=== PATIENT | female | born 1970 | race Caucasian/White ===

== ENCOUNTER → 2017-06-22 | Day surgery (SDC) | payer OTHER ==
[~2017-06-22] VITALS: Ht 165.1 cm; Wt 88.2 kg
[~2017-06-22] MED LIST: *LABETALOL HCL 100 MG/20 ML VIAL PERIprocedural Use ONLY ONE; *morphine SULFATE 4 MG/ML PERIprocedure ONLY ONE; ACETAMINOPHEN 1000 MG/100 ML 100 ML IV ONE; APREPITANT 40 MG CAP ONE; APREPITANT 40 MG CAP PO ONE; ATOR40TA16 PO; BUPR300T PO; CHLORHEXIDINE GLUCONATE 2 % 1 PACK (2 CLOTHS) TOPICAL PRN; DEXAMETHASONE SOD PHOS 4 MG/ML VIAL IV ONE; DEXAMETHASONE SOD PHOS 4 MG/ML VIAL IV PUSH ONE; DO NOT ADM ANY ANTICOAGULANT DRUGS PRN; DULO1CAP2 PO; FAMOTIDINE 20 MG/2 ML VIAL IV PUSH ONE; INSULIN HUMAN REGULAR 1,000 UNITS/10 ML VIAL SQ PRN; KETOROLAC TROMETHAMINE 30 MG/ML (IVP) VIAL IV PUSH ONE; LACTATED RINGER'S 1000 ML IV PRN; LEVO-86 PO; LIDOCAINE HCL 1% PF 5 ML SYRINGE OTHER ONE; LORazepam 2 MG/ML VIAL IV PRN; LORazepam 2 MG/ML VIAL ONE; METOPROLOL TARTRATE 25 MG TAB PO PRN; MIDAZOLAM HCL 2 MG/2 ML VIAL IV PUSH ONE; MONT10TA4 PO; ONDANSETRON HCL 4 MG/2 ML VIAL IV ONE; ONDANSETRON HCL 4 MG/2 ML VIAL IV PUSH ONE; POVIDONE IODINE 5% (ANTISEPSIS KIT) 4 APPLICATIONS EACH NARE PRN; PROMETHAZINE INJ 25 MG/ML VIAL ONE; PROPOFOL 200 MG/20 ML AMP IV ONE; SODIUM CHLORID 0.9% 500 ML IV PRN; ceFAZolin 1,000 MG/NS 100 ML IV SCH; oxyCODONE/ACETAMINOPHEN 5 MG/325 MG TAB PO PRN
--- NOTE | 2017-06-22 07:30 | PD.OP ---
Operative Report Date of Surgery: Jun 22, 2017 Preoperative Diagnosis: (1) Excessive and frequent menstruation with regular cycle (2) Secondary dysmenorrhea (3) Intramural leiomyoma of uterus (4) Iron deficiency anemia due to chronic blood loss Postoperative Diagnosis: (1) Excessive and frequent menstruation with regular cycle (2) Secondary dysmenorrhea (3) Intramural leiomyoma of uterus (4) Iron deficiency anemia due to chronic blood loss Procedure: 1. hysteroscopy 2. D&C 3. endometrial ablation with NovaSure Anesthesia: PEDRO Surgeon: Marina Roman Supervisor Cell Efficiency(s): OR Staff Operation and Findings: IVF: 600 ml LR + IV antibiotics given prior to surgery EBL: 10 ml UO: none Findings: normal uterine cavity Specimens: endometrial curettings Complications: none Condition: stable Disposition: PACU Description of the procedure: The risks, benefits and alternatives of the procedure were discussed with the patient. Her questions were answered. The patient signed informed consent and wished to proceed. She was taken to the operating room with her IV running. She was placed in the supine position and was given general anesthesia without difficulties or complications. The patient was placed in the dorsal lithotomy position and was prepped and draped in the usual sterile fashion. A bivalve speculum was introduced inside the patient's vagina. The anterior aspect of the cervix was grasped with a single tooth tenaculum for manipulation. The cervix was carefully dilated; the uterus sounded to 9.0 cm and the cervix was measured to 4 cm. A 5 mm hysteroscope was introduced inside the patient's uterus. The cavity was noted to be within normal limits (patient was on her menses). A careful curettage was done with a sharp curet. The tissues were sent to pathology.Endometrial ablation was done following NovaSure protocol without any difficulties or complications (settings: width 4.8 cm, length 5.0 cm, power 132 W, time 0.51 min ). All the instruments were removed from the patient's uterus. All the instruments were removed from the patient's vagina. Excellent hemostasis was noted after placing a figure eight at the tenaculum site. She tolerated the procedure well; she was successfully awaken from general anesthesia and was transferred to PACU in stable condition. Note: I discussed the surgical findings and surgical procedures with patient's over the phone. His questions were answered. He verbalized understanding and agreement to the procedures done. Marina Roman MD Jun 22, 2017 07:30
[2017-06-22 18:29] VITALS: BP 162/91; PULSE 73; RESP 15; TEMP 98.2; O2SAT 94
== END | disposition home or self-care (01) ==
LOC: HSDC 12:19
PROVIDERS: ATTEND Obstetrics & Gynecology
DX: N92.0 Excessive and frequent menstruation with regular cycle (principal); N94.6 Dysmenorrhea, unspecified; D25.1 Intramural leiomyoma of uterus; D50.0 Iron deficiency anemia secondary to blood loss (chronic); E06.3 Autoimmune thyroiditis; Z79.899 Other long term (current) drug therapy
CPT/HCPCS: 00952; 58563; 82948; 88305; J0131; J0690; J1100; J1885; J2060; J2270; J2405; J2550; J3010; J7120; J8501